=== PATIENT | female | born 1935 | race Caucasian/White ===

== ENCOUNTER → 2021-05-05 | Outpatient (CLI) | payer OTHER, MEDICARE ==
[~2021-05-05] MED LIST: ALLOPURINOL 10100 M2 PO; AMLODIPINE BESY10 MG PO; ASA81BEC PO; COREG6.25 MG PO; IMDUR 60 MG TAB60 M1 PO; LEVO-T75 MCG PO; LISINOPRIL20 MG PO; NITROSTAT0.4 M1 SUBLING; RESTORIL15 M1 PO; SIMVASTATIN40 MG PO; TORSEMIDE10 MG PO; TYLENOL325 MG PO; VITAMIN D325 MC3 PO
[2021-05-05 13:25] LABS: URINE BILIRUBIN NEGATIVE (Negative); URINE BLOOD TRACE (Negative); URINE CLARITY CLEAR; URINE COLOR YELLOW; URINE GLUCOSE-RANDOM* NEGATIVE (Negative); URINE KETONES NEGATIVE (Negative); URINE NITRITE-REFLEX NEGATIVE (Negative); URINE PROTEIN (DIPSTICK) NEGATIVE (Negative); URINE SPECIFIC GRAVITY 1.015 (1.005-1.035); URINE UROBILINOGEN 0.2 E.U./dl (0.2-1.0)
[2021-05-05 13:28] LABS: HEMATOCRIT 36.3 % (37.0-47.0); HEMOGLOBIN 12.4 gm/dL (12.0-15.0); MCH 35.9 pg (26.0-34.0); MCHC 34.1 g/dL (28.0-37.0); MCV 105.4 fL (80.0-100.0); RBC 3.45 mil/uL (4.20-5.00); RDW 13.8 % (10.5-14.5); WBC 8.2 thou/uL (4.0-11.0)
[2021-05-05 13:34] LABS: ALBUMIN 3.8 g/dL (3.4-5.0); CALCIUM 9.2 mg/dL (8.5-10.1); CREATININE 1.2 mg/dL (0.6-1.0)
[2021-05-05 13:36] LABS: URINE LEUKOCYTES-REFLEX 2+ (Negative)
[2021-05-05 13:39] LABS: CASTS None Seen /LPF (None Seen); SQUAMOUS 0-3 Few /LPF (0-3)
[2021-05-05 13:40] LABS: BACTERIA-REFLEX 1-9 Few /HPF (None Seen); CRYSTALS None Seen /LPF (None Seen); URINE RBC 1-2 Rare /HPF (NONE SEEN)
[2021-05-05 13:51] LABS: PROTIME 10.9 Seconds (10.5-12.1)
== END ==
LOC: PAC 09:51
PROVIDERS: ATTEND Orthopaedic Surgery
DX: Z01.812 Encounter for preprocedural laboratory examination (principal)

== ENCOUNTER 2021-05-11 12:13 | Observation (INO) | payer OTHER, MEDICARE ==
[~2021-05-11] VITALS: Ht 149.9 cm; Wt 71.2 kg
--- NOTE | ~2021-05-11 | O ---
[facility] [place] [address] OPERATIVE REPORT Name: SHAHRIAR ROLAND Room #: 443-P [facility] Michael Batres#: [id number] Admission: 05/11/21 Attend Phys: Angel Mahmood MD Discharge: Date of : 39 Report #: [id number] THIS REPORT FOR: cc: FAM - Family physician unknown FAM - Family physician unknown Angel Mahmood MD ~ DOC #: [id number] Angel Mahmood MD DATE OF SERVICE: 05/11/2021 PREOPERATIVE DIAGNOSIS: Right knee osteoarthritis. POSTOPERATIVE DIAGNOSIS: Right knee osteoarthritis. PROCEDURE: Right total knee arthroplasty using Navio robotic assistance. SURGEON: Angel Mahmood MD. LOG TRUCK DRIVER: Edith Wolf PA-C. INDICATION FOR LOG TRUCK DRIVER: Throughout the case, extensive retraction and manipulation of the knee was required. This was afforded to me by my environmental services assistant. ANESTHESIA: LMA with adductor canal block. IMPLANTS: Tello and Nephew size 3 Journey II BCS cobalt chrome femur, size 3 tibia, size 10 polyethylene, size 32 patella. TOURNIQUET TIME: 49 minutes. ESTIMATED BLOOD LOSS: 25 mL. COMPLICATIONS: None. SPECIMENS: None. CONDITION UPON LEAVING THE OR: Stable. INDICATIONS FOR PROCEDURE: The patient is an 85-year-old female with right knee osteoarthritis. She had failed conservative measures for this; and after discussion with her, she elected for right total knee arthroplasty. DESCRIPTION OF PROCEDURE: Risks, benefits, alternatives and complications were discussed in detail with the patient including, but not limited to, risk of anesthesia, risk of damage to nerves, arteries, blood vessels, risk for infection, bleeding, risk for continued knee pain, need for reoperation. [address] [address] OPERATIVE REPORT Name: ASHUTSOHRAFFISHAHRIAR Room #: 443-P [facility] Michael Batres#: [id number] Admission: 05/11/21 Attend Phys: Angel Mahmood MD Discharge: Date of : 39 Report #: [id number] Informed consent was obtained from the patient's. Right knee was appropriately marked in the preoperative holding area. IV Ancef was given for preoperative antibiotics. She was brought to the operating room and placed in the supine position on the operating room table. LMA anesthesia was induced without complication. Tourniquet was placed on the right thigh. Right lower extremity was prepped and draped in normal sterile fashion. Timeout was performed, properly identifying the patient and procedure as well as instrumentation and implants. All in the operating room were in agreement. Right lower extremity was exsanguinated and tourniquet inflated. Tourniquet time was 49 minutes. Standard midline approach to knee was made with 10-blade through the skin. Dissection was taken down sharply to the fascia. Deep flaps were developed medially and laterally. Fresh 10-blade was used to make a medial parapatellar arthrotomy and the knee was inspected. There was severe medial compartment osteoarthritis with moderate lateral and patellofemoral compartment osteoarthritis. ACL and PCL were removed sharply. Reference pins were placed in the femur and the tibia. The knee was digitally mapped using the Admazely robotic system. Intraoperative plan was made. We sized a size 3 femur, the size 3 tibia with a 10 spacer. After acceptance of the intraoperative plan, the distal femoral cut was made with Navio bur. Distal femoral cutting block was pinned in place and chamfer cuts were made. Attention was turned to the tibia. Remainder of the menisci were removed with Bovie cautery. Tibial resection guide was pinned in place using Navio for placement. Tibial resection was made. Flexion and extension gaps were checked and found to be tight medially in extension and limited medial release was performed using the pie crust technique. This balanced the knee well. Tibia sized, found to be a size 3. Size 3 tibial trial was placed, pinned and punched. Size 3 femoral trial was placed and the box cut was made. This was then trialed with a size 9 and then a size 10 polyethylene. Size 10 polyethylene demonstrated the best range of motion of the knee and stability both medially and laterally. 9 mm of bone was resected from the posterior surface of the patella and a size 32 patellar trial button was placed. Knee was taken through range of motion, found to be stable, found to have good patellar tracking. The trial components were removed. Bone ends were thoroughly irrigated with normal saline. Final size 3 tibia, size 3 Journey II BCS cobalt chrome femur and a size 32 patella were cemented in place using standard cementation techniques. While the cement cured, a periarticular injection consisting of morphine, ropivacaine, epinephrine, and Toradol was placed around the knee joint capsule. After the cement cured and tourniquet was deflated, hemostasis was obtained with Bovie cautery. Final size 10 polyethylene was placed. A gram of vancomycin was placed deep in the joint. Fascia was closed with 0 Vicryl. Skin was closed with 2-0 Vicryl, skin staple and a ANGELICA dressing was applied. The patient tolerated this procedure well and went to recovery room under care of anesthesia postoperatively. MD ENO Szymanski/ДМИТРИЙ/[address] [address] OPERATIVE REPORT Name: SHAHRIAR ROLAND Room #: 443-P [facility] Michael Batres#: [id number] Admission: 05/11/21 Attend Phys: Angel Mahmood MD Discharge: Date of : 39 Report #: [id number] By: [id number] Angel Mahmood MD /nt
[2021-05-11 14:37] VITALS: BP 142/49
[2021-05-11 19:15] VITALS: BP 114/60
[2021-05-12 07:26] VITALS: BP 122/53
[2021-05-12 09:46] VITALS: BP 122/53
--- NOTE | 2021-05-12 09:53 | NUR ---
ASSESMENT: CM REVIEWED CHART AND SPOKE WITH PATIENT AT THE BEDSIDE. PT IS S/P RIGHT TKA. PT REPORTS LIVING IN A HOUSE WITH HER ADULT DAUGHTER. PT REPORTS SHE HAS TWO STEPS WITH [employer] TO ENTER THE HOME. PT REPORTS ONCE INSIDE SHE HAS NO STEPS SHE HAS TO USE. PT REPORTS SHE HAS A CANE AT HOME BUT IS NEEDING A WALKER. PT REPORTS NO PREFERENCE OF [employer]. CM NOTIFIED [employer] AND SPOKE WITH [employer] AND VERIFIED INSURANCE AND SHE CAN BE ISSUED A WALKER. CM NOTIFIED PHYSICAL THERAPIST TO ISSUE WALKER TO PATIENT. PT REPORTS THAT SHE HAS TWO GRAB BARS AND SHOWER CHAIR AND IS INDEPENDENT WITH ADLS. PT REPORTS HER DAUGHTER ARRANGED HER OUTPATIENT THERAPY BUT UNSURE WHERE IT IS. CM DISCUSSED ROLE. CM WILL CONTINUE TO FOLLOW TO ASSIST NEEDED.
[2021-05-12 10:00] VITALS: BP 122/53
--- NOTE | 2021-05-12 12:58 | NUR ---
ASSUMED PT CARE THIS AM. PT IS ALERT & ORIENTED X4. PT HAS IV SITE ON R FA RUNNING D5 1/2 @100ML/HR AND HAS L LIMB ALERT. PT IS UP WITH ASSIST X1 WITH WALKER AND GAITBELT. PT HAS ANGELICA DRESSING, SCD, POLAR PACK, JJ [employer]ES BILATERAL KNEE HIGH. PT HAS O2 2L NC FOR COMFORT. PT DENIES PAIN, NAUSEA AND VOMITING THIS AM. PT TOLERATED MEDICATION AND DIET WELL. PT WALKED WITH PHYSICAL THERAPY TODAY AND DID WELL. AWAITING FOR WALKER TO BE DELIVERED. PT ON THE CHAIR WITH ALARM ON. WILL CONTINUE TO MONITOR PT. FOLLOW POC.
[2021-05-12 13:50] LABS: CALCIUM 8.4 mg/dL (8.5-10.1); CREATININE 2.1 mg/dL (0.6-1.0); POTASSIUM 4.3 mmol/L (3.5-5.1)
== END 2021-05-12 15:00 | disposition home or self-care (01) ==
LOC: OR → 4S 19:30
PROVIDERS: Nurse Practitioner Family; ADMIT Orthopaedic Surgery; ATTEND Orthopaedic Surgery
DX: M17.11 Unilateral primary osteoarthritis, right knee (principal); I25.10 Atherosclerotic heart disease of native coronary artery without angina pectoris; E03.9 Hypothyroidism, unspecified; I10 Essential (primary) hypertension; E78.5 Hyperlipidemia, unspecified; M10.9 Gout, unspecified; G47.00 Insomnia, unspecified; Z85.3 Personal history of malignant neoplasm of breast; N39.0 Urinary tract infection, site not specified; Z79.899 Other long term (current) drug therapy; Z95.818 Presence of other cardiac implants and grafts
CPT/HCPCS: 50010; 50101; 50415; 50954; 51130; 51225; 51320; 51412; 53000; 53078; 56527; 56528; 57095; 57103; 57110; 57127; 57180; 58239; 62110; 62900; 64043; 65060